=== PATIENT | female | born 1940 | race Caucasian/White ===

== ENCOUNTER 2020-08-03 00:45 | Emergency (ER) | payer BC, MEDICARE ==
[2020-08-03] MEDS ORDERED: SODIUM CHLORIDE 0.9% 500 ML 500 ML IV STA (01:06)
--- NOTE | 2020-08-03 01:06 | ED ---
General Adult HPI - General Chief complaint: Fever Stated complaint: Covid Positive,Fever Time Seen by Provider: 08/03/20 00:51 Source: EMS, RN notes reviewed Mode of arrival: EMS Limitations: altered mental status, physical limitation - History of Present Illness Initial comments: 79-year-old female brought in by EMS transfer from [facility]. Patient is apparently Covid positive. The according to the nurse patient was sent in for respiratory distress and high fevers. It was reported the patient appeared lethargic to the assisted staff as well. On presentation patient is alert however is baseline demented. O2 saturation is 93% on room air. She is 97.1 axillary. She is not in any respiratory distress. Patient has no other compl aints at this time including chest pain, abdominal pain, nausea or vomiting, headache, or visual changes. - Related Data Allergies Allergy/AdvReac Type Severity Reaction Status Date / Time codeine AdvReac Unknown Verified 08/03/20 01:17 Review of Systems ROS Statement: Those systems with pertinent positive or pertinent negative responses have been documented in the HPI. ROS Other: All systems not noted in ROS Statement are negative. Past Medical History Past Medical History: Unable to Obtain History of Any Multi-Drug Resistant Organisms: Unobtainable Past Surgical History: Unable to Obtain Past Psychological History: Unable to Obtain Smoking Status: Unknown if ever smoked Past Alcohol Use History: Unable to Obtain Past Drug Use History: Unable to Obtain General Exam Limitations: altered mental status, physical limitation General appearance: alert Head exam: Present: atraumatic Eye exam: Present: normal appearance ENT exam: Present: normal exam, mucous membranes moist Neck exam: Present: normal inspection, full ROM Respiratory exam: Present: normal lung sounds bilaterally. Absent: respiratory distress Cardiovascular Exam: Present: regular rate, normal rhythm GI/Abdominal exam: Present: soft, normal bowel sounds. Absent: distended, te nderness Neurological exam: Present: alert Course Vital Signs 08/03/20 08/03/20 08/03/20 00:52 01:24 02:00 Temperature 97.1 F L 102 F H Pulse Rate 98 82 Respiratory 18 Rate Blood Pressure 108/64 O2 Sat by Pulse 93 L Oximetry 08/03/20 02:43 Temperature 99.5 F Pulse Rate 82 Respiratory 16 Rate Blood Pressure 118/63 O2 Sat by Pulse 97 Oximetry - Reevaluation(s) Reevaluation #1: 01/10/21 01:00 pt is a DNR according to her paperwork EKG Findings - EKG Comments: EKG Findings:: Normal sinus rhythm, right bundle branch block. Ventricular rate 97. AL interval 112, QTC 485 Medical Decision Making - Medical Decision Making Vitals are stable. Patient is 97% on room air. She does have a fever here and was given Tylenol which is to be expected with her COVID diagnosis. CBC unremarkable. CMP unremarkable. LDH and CRP elevated consistent with Covid. Magnesium of 1.5, replaced orally. Chest x-ray shows small amount of bibasilar atelectasis and/or pneumonia. Patient was given fluids in the emergency room. She continues to appear in no distress, resting comfortably. At this time patient is stable to be discharged home to her assisted facility. - Lab Data Result diagrams: 08/03/20 01:23 08/03/20 01:23 Lab Results 08/03/20 08/03/20 08/03/20 Range/Units : 01: 01:23 WBC 10.6 (3.8-10.6) k/uL RBC 4.12 (3.80-5.40) m/uL Hgb 13.1 (11.4-16.0) gm/dL Hct 38.7 (34.0-46.0) % MCV 94.1 (80.0-100.0) fL MCH 31.8 (25.0-35.0) pg MCHC 33.8 (31.0-37.0) g/dL RDW 13.2 (11.5-15.5) % Plt Count 199 (150-450) k/uL MPV 8.6 Neutrophils % 83 % Lymphocytes % 10 % Monocytes % 4 % Eosinophils % 0 % Basophils % 1 % Neutrophils # 8.8 H (1.3-7.7) k/uL Lymphocytes # 1.1 (1.0-4.8) k/uL Monocytes # 0.4 (0-1.0) k/uL Eosinophils # 0.0 (0-0.7) k/uL Basophils # 0.1 (0-0.2) k/uL PT 11.1 (9.0-12.0) sec INR 1.1 (<1.2) APTT 26.2 (22.0-30.0) sec Sodium 147 H (137-145) mmol/L Potassium 3.8 (3.5-5.1) mmol/L Chloride 115 H (98-107) mmol/L Carbon Dioxide 21 L (22-30) mmol/L Anion Gap 11 mmol/L BUN 51 H (7-17) mg/dL Creatinine 1.87 H (0.52-1.04) mg/dL Est GFR (CKD-EPI)AfAm 29 (>60 ml/min/1.73 sqM) Est GFR (CKD-EPI)NonAf 25 (>60 ml/min/1.73 sqM) Glucose 121 H (74-99) mg/dL Plasma Lactic Acid Roman (0.7-2.0) mmol/L Calcium 9.1 (8.4-10.2) mg/dL Magnesium 1.5 L (1.6-2.3) mg/dL Total Bilirubin 0.5 (0.2-1.3) mg/dL AST 59 H (14-36) U/L ALT 31 (4-34) U/L Alkaline Phosphatase 113 (38-126) U/L Lactate Dehydrogenase 650 H (313-618) U/L C-Reactive Protein 29.9 H (<10.0) mg/L Total Protein 6.9 (6.3-8.2) g/dL Albumin 3.6 (3.5-5.0) g/dL 08/03/20 Range/Units 01:23 WBC (3.8-10.6) k/uL RBC (3.80-5.40) m/uL Hgb (11.4-16.0) gm/dL Hct (34.0-46.0) % MCV (80.0-100.0) fL MCH (25.0-35.0) pg MCHC (31.0-37.0) g/dL RDW (11.5-15.5) % Plt Count (150-450) k/uL MPV Neutrophils % % Lymphocytes % % Monocytes % % Eosinophils % % Basophils % % Neutrophils # (1.3-7.7) k/uL Lymphocytes # (1.0-4.8) k/uL Monocytes # (0-1.0) k/uL Eosinophils # (0-0.7) k/uL Basophils # (0-0.2) k/uL PT (9.0-12.0) sec INR (<1.2) APTT (22.0-30.0) sec Sodium (137-145) mmol/L Potassium (3.5-5.1) mmol/L Chloride (98-107) mmol/L Carbon Dioxide (22-30) mmol/L Anion Gap mmol/L BUN (7-17) mg/dL Creatinine (0.52-1.04) mg/dL Est GFR (CKD-EPI)AfAm (>60 ml/min/1.73 sqM) Est GFR (CKD-EPI)NonAf (>60 ml/min/1.73 sqM) Glucose (74-99) mg/dL Plasma Lactic Acid Roman 1.3 (0.7-2.0) mmol/L Calcium (8.4-10.2) mg/dL Magnesium (1.6-2.3) mg/dL Total Bilirubin (0.2-1.3) mg/dL AST (14-36) U/L ALT (4-34) U/L Alkaline Phosphatase (38-126) U/L Lactate Dehydrogenase (313-618) U/L C-Reactive Protein (<10.0) mg/L Total Protein (6.3-8.2) g/dL Albumin (3.5-5.0) g/dL Disposition Clinical Impression: COVID-19, Hypomagnesemia, Febrile Disposition: ADMITTED IP TO THIS HOSP Additional Instructions: If patient develops worsening symptoms please return to the emergency room. Is patient prescribed a controlled substance at d/c from ED?: No Referrals: None,Stated [Primary Care Provider] - 1-2 days Time of Disposition: 02:50
[2020-08-03 01:39] LABS: Basophils # (A) 0.1 k/uL (0-0.2); Basophils % (A) 1 %; Eosinophils % (A) 0 %; HCT 38.7 % (34.0-46.0); HGB 13.1 gm/dL (11.4-16.0); Lymphocytes # (A) 1.1 k/uL (1.0-4.8); Lymphocytes % (A) 10 %; MCH 31.8 pg (25.0-35.0); MCHC 33.8 g/dL (31.0-37.0); MCV 94.1 fL (80.0-100.0); Mean Platelet Volume 8.6; Monocytes # (A) 0.4 k/uL (0-1.0); Monocytes % (A) 4 %; Neutrophils # (A) 8.8 k/uL (1.3-7.7); Neutrophils % (A) 83 %; Platelet Count 199 k/uL (150-450); RBC 4.12 m/uL (3.80-5.40); RDW 13.2 % (11.5-15.5); WBC 10.6 k/uL (3.8-10.6)
--- NOTE | 2020-08-03 01:49 | XR ---
EXAM: XR Chest, 1 View CLINICAL HISTORY: Suspected COVID-19 pneumonia TECHNIQUE: Frontal view of the chest. COMPARISON: No relevant prior studies available. FINDINGS: Lungs: Small amount of bibasilar airspace opacities. Pleural space: Unremarkable. No pneumothorax. Mediastinum: Calcified aorta. Bones/joints: Osteopenia.. IMPRESSION: Small amount of bibasilar atelectasis and/or pneumonia..
[2020-08-03 01:50] LABS: Albumin 3.6 g/dL (3.5-5.0); C Reactive Protein 29.9 mg/L (<10.0); Calcium 9.1 mg/dL (8.4-10.2); Magnesium 1.5 mg/dL (1.6-2.3); Potassium 3.8 mmol/L (3.5-5.1); Total Bilirubin 0.5 mg/dL (0.2-1.3); Total Protein 6.9 g/dL (6.3-8.2)
[2020-08-03] MEDS ORDERED: ACETAMINOPHEN TAB 500 MG TAB PO STA (01:51)
[2020-08-03 02:03] LABS: INR 1.1 (<1.2); Partial Thromboplastin Time 26.2 sec (22.0-30.0); Prothrombin Time 11.1 sec (9.0-12.0)
[2020-08-03 02:45] VITALS: RESP 16
[2020-08-03] MEDS ORDERED: MAGNESIUM OXIDE 400 MG TAB PO STA (02:46)
[2020-08-03] MEDS ORDERED: ACETAMINOPHEN IV (For NPO) 1,000 MG in EMPTY BAG 1 BAG IVPB STA (02:53)
[2020-08-03 04:11] VITALS: BP 106/66; PULSE 84; TEMP 100.8
== END 2020-08-03 04:21 | disposition other institution (70) ==
LOC: EC 00:45
DX: U07.1 COVID-19 (principal); E83.42 Hypomagnesemia; Z88.5 Allergy status to narcotic agent
CPT/HCPCS: 36415; 93005; 80053; 82728; 83605; 83615; 83735; 85025; 85610; 85730; 86140; 84145; 71045; 99285; 96374; J0131